=== PATIENT | male | born 2000 | race Hispanic/Latino ===

== ENCOUNTER 2024-02-10 01:15 | Emergency (ER) | payer SELFPAY ==
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
[2024-02-10 03:22] LABS: Absolute Basophils 0.1 K/uL (0-0.5); Absolute Lymphocytes (CBC) 2.7 K/uL (0.7-4.9); Absolute Monocytes 0.3 K/uL (0.1-1.3); Absolute Neutrophil 6.2 K/uL (1.8-8.0); Basophils % 0.6 % (0-1.3); Eosinophils % 0.3 % (0-4.4); Hematocrit 42.6 % (39.6-49.0); Hemoglobin 14.6 g/dL (13.6-17.9); Lymphocytes % 29.4 % (15.3-44.8); MCH 29.7 pg (27.0-35.0); MCHC 34.3 g/dL (32.0-36.0); MCV 86.6 fL (80-100); MPV 8.8 fL (7.6-11.3); Monocytes % 3.2 % (3.3-12.3); Neutrophils % 66.5 % (41.7-73.7); Platelets 285 thou/uL (152-406); RBC Red Blood Cell Count 4.92 M/uL (4.33-5.43); Red Cell Distribution Width 13.2 % (12.1-15.2)
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
[2024-02-10 03:28] LABS: Anion Gap 11.4 mEq/L (5.0-15.0); Potassium 3.4 mEq/L (3.5-5.1)
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
[2024-02-10 14:21] VITALS: TEMP 98.1
[2024-02-10 14:24] VITALS: BP 135/77; O2SAT 100
== END 2024-02-10 04:01 | disposition home or self-care (01) ==
LOC: ER 01:15
DX: M79.645 Pain in left finger(s) (principal); V47.5XXA Car driver injured in collision with fixed or stationary object in traffic accident, initial encounter; F17.210 Nicotine dependence, cigarettes, uncomplicated
CPT/HCPCS: 36415; 70450; 71260; 72125; 74177; 80048; 85025; Q9967